=== PATIENT | female | born 1990 | race Caucasian/White ===

== ENCOUNTER 2019-08-07 07:18 | Inpatient (IN) | payer OTHER ==
[2019-08-07] VITALS (20 sets, daily range): BP systolic 106–155; BP diastolic 58–82
[~2019-08-07] VITALS: Ht 162.6 cm; Wt 81.1 kg
[2019-08-07] MEDS ORDERED: GNP28TAB2 PO (07:53)
[2019-08-07] MEDS ORDERED: PROAAER10 INH (07:55)
[2019-08-07] MEDS ORDERED: OMEG10002 PO (07:56)
[2019-08-07] MEDS ORDERED: LACTATED RINGER'S 1000 ML IV ONE (08:15)
[2019-08-07] MEDS ORDERED: miSOPROStol 50 MCG 1/2 TAB (S0191) PO ONE ×2 (08:15→22:45)
[2019-08-07] MEDS: LR 1,000 ML IV SCH (08:45)
[2019-08-07 08:55] LABS: HEMATOCRIT 37.2 % (36.0-47.0); HEMOGLOBIN 12.4 g/dl (12.0-15.5); MEAN CORPUSCULAR HEMOGLOBIN 30.3 pg (27.0-33.0); MEAN CORPUSCULAR HGB CONC 33.3 g/dl (32.0-36.5); PLATELET COUNT, AUTOMATED 203 10^3/uL (150-450); RED BLOOD COUNT 4.09 10^6/uL (4.00-5.40); WHITE BLOOD COUNT 9.4 10^3/uL (4.0-10.0)
--- NOTE | 2019-08-07 10:54 | HPE ---
DATE OF ADMISSION: 08/07/2019 29-year-old 1, para 0, LMP 10/25/2018, EDC 08/01/2019 at 40 and 4 weeks for induction of labor. Risk factor is that she has asthma. LABORATORIES: A+, HIV negative, hep negative, RPR negative, rubella immune. Varicella immune. Pap normal. Urine negative. Gonorrhea and chlamydia were negative. Urine was negative. 1-hour GTT early was 114, 28 weeks GTT was 111. GBS negative. Urine is 1020, pH 6, negative. Blood pressure 126/82, respirations 18, pulse 82 and temperature 98.6. PHYSICAL EXAMINATION: No distress. Symphysis fundus height is 40, vertex, OA, four quadrant bowel sounds are noted. Category 1 strip. Posterior, soft, 50%, 1-2 cm. The rest of the examination is unremarkable. Normocephalic, atraumatic. Neck with full range of motion. Pupils equal and reactive to light. Distal pulses symmetric. No evidence of DVT, PE or superficial phlebitis. Chest is clear bilaterally. No wheezes or rhonchi. No CVA tenderness. Abdomen is soft. As mentioned, four quadrant bowel sounds. No rashes, lesions or pruritus. No arthralgia, myalgia. No complaint joint pain. No complaint cough, wheeze, shortness of breath or dyspnea on exertion. No bruising or bleeding. Neuro complete. No urgency or frequency. No nausea, vomiting, diarrhea or constipation. No diabetic or heat or cold issues. PAST GYNECOLOGICAL HISTORY: Unremarkable. No STDs. PAST MEDICAL HISTORY: Asthma, uses an inhaler an as needed basis. PAST SURGICAL HISTORY: Unremarkable. FAMILY HISTORY: Noncontributory. SOCIAL HISTORY: She does not smoke, drink or abuse drugs. She is . There is no domestic violence. We discussed the vaginal delivery, which is delivery of the baby through the vagina with possible assistance of forceps or vacuum devices if needed for maternal or indications, forceps or vacuum device can assist with vaginal delivery when normal pushing efforts cannot achieve delivery on their own or when delivery is needed in emergency for baby's well-being. Medications that may require to induce or augment labor in order achieve vaginal delivery. Episiotomy may be required to help the baby deliver vaginally. You may also require repair of any lacerations or tears of the vagina or vulva that are caused by delivery and in some cases emergencies can arise that require emergency section and the provider will discuss the reasons and indications and used only for clinically indicated reasons. Risk of vaginal delivery is not limited to bleeding, infection, injury to the vagina, pelvic structures, injury to baby, damage to the uterus, reaction to anesthesia, uterine rupture, risk of hysterectomy for life-threatening bleeding issues. Medication used to induce or augment labor may possibly cause increased risk of infection, uterine tachysystole, uterine rupture, bleeding, heart rate abnormalities, emergency section, hemorrhage. Increased risk of perineal or vaginal lacerations of vaginal delivery. Risk of urinary bowel incontinence. Use of forceps or vacuum include scratches, hematomas of the head or intracranial bleed. The patient verbalized understanding, 40-minute discussion. All questions were answered. Safe to proceed.
--- NOTE | 2019-08-07 12:44 | IPN ---
DATE: 08/07/2019 This lady was admitted for induction of labor. She was given 50 mg of misoprostol by mouth. On reassessment 4 hours later, contractions are 4 minutes apart, moderate intensity. Cervix is changed to anterior, 1-2 cm, still thick. We anticipate with a category one strip one more oral 25 mg tablet, this should activate active labor. We will reevaluate her in 4 hours time. Safe to proceed.
[2019-08-07] MEDS ORDERED: miSOPROStol 25 MCG 1/4 TAB (S0191) PO ONE (12:45)
--- NOTE | 2019-08-07 16:39 | IPN ---
DATE: 08/07/2019 Time: 1600 hours This lady is a 1, para 0 who was admitted for induction of labor post term gestation. She had one misoprostol 50 mg by mouth (p.o.) and was doing well with contractions. Therefore we evaluated her. She was 1 to 2 cm. We let her continue on for another 3-4 hours, evaluated her, category one strip. No change in the cervix. Therefore were adding 25 mg by mouth. She is still not at the point of Estes bulb Pitocin augmentation. The patient expressed understanding of the plan of care. Safe to proceed.
--- NOTE | 2019-08-07 22:59 | IPN ---
DATE: 08/07/2019 This lady is admitted for induction of labor. She had had one misoprostol 50 mg and she had 25 mg, now she is going to have another 50 by mouth (p.o.). Contractions are intermittent. There is been basically no cervical change since admission, still posterior finger tip -3 station, inability to get a Estes bulb in basically too early for Pitocin. Our plan of care is to do one more misoprostol, hopefully to allow us to engage with a Estes bulb and a Pitocin order. Has a category one strip. She has had one elevated blood pressure at the time of the examination, was 155/72. The rest of her blood pressures throughout have been all in the normal range. The patient expressed understanding of plan of care.
[2019-08-08] VITALS (20 sets, daily range): BP systolic 94–148; BP diastolic 55–91
[2019-08-08] MEDS ORDERED: BUTORPHANOL 2 MG/ML INJ (J0595) IV ONE (00:45)
[2019-08-08] MEDS ORDERED: PROMETHAZINE INJ 25 MG/ML VIAL (J2550) IV ONE ×2 (00:45→20:45)
[2019-08-08] MEDS ORDERED: miSOPROStol 50 MCG 1/2 TAB (S0191) PO ONE (07:15)
--- NOTE | 2019-08-08 07:18 | IPN ---
DATE: 08/08/2019 This lady was admitted for induction of labor. She was at 40 and 4. She is now 40 and 5 weeks of gestation. Initially she had an unfavorable cervix, was given 15 mcg of Misoprostol, followed up by irregular contractions. She was allowed to labor on her own and the contractions petered out. She was given 25 mcg of Misoprostol, essentially just intermittent contractions. She was then evaluated again and found to have an unfavorable cervix inability to put a Estes or even start Pitocin. She was given another 50 mcg of Misoprostol. Overnight she was allowed to sleep. She was given Stadol and Phenergan and on awakening this morning again examining her cervix, it is still unstable for a Estes bulb or Misoprostol, although it has softened up considerably. We have elected to go head and have her have breakfast and then will redo the Misoprostol times one 50 mcg. At 7:01 this morning blood pressure was 148/91, respirations 18 and she was afebrile. Safe to proceed. Category 1 strip of the present time with minimal contractions.
[2019-08-08] MEDS ORDERED: OXYTOCIN DRIP 30 UNITS in IV 1 EA IV SCH (12:45)
[2019-08-08] MEDS: LR 1,000 ML IV SCH (13:12)
--- NOTE | 2019-08-08 17:28 | IPNPDOC ---
Text Note Date of Service The patient was seen on 08/08/19. NOTE Shanthi is a 29 y/o G1 at 41+0 weeks EGA admitted yesterday for late term IOL. GBS is neg. Received 4th dose oral misoprostil (50mcg) this morning at 07:30. currently on 4 mU/min pit. patient reports feeling mild contractions. vitals: normal NAD abd: gravid, soft, nt, cephalic efw: 3800 gm fht:135/mod johanne/pos accel/no decel toco: ctx q 2-5mins ce: /-3, posterior, soft a/p patient not in labor. carmen bulb placed with 80cc cervical side. continue with pit. reassess after carmen bulb comes out. Le, DO VS,Fishbone, I+O VS, Fishbone, I+O Vital Signs Date Time Temp Pulse Resp B/P (MAP) Pulse Ox O2 Delivery O2 Flow Rate FiO2 08/08/19 14:32 74 16 128/82 (97) 08/08/19 13:15 98.2 I&O- Last 24 Hours up to 6 AM 08/08/19 06:00 Intake Total 3000 ml Output Total 1400 ml Balance 1600 ml FLORESITA LOPEZ DO Aug 08, 2019 17:28
[2019-08-08] MEDS ORDERED: MORPHINE 10 MG/ML 1ML VIAL (J2270) IV ONE (20:45)
[2019-08-08] MEDS ORDERED: MORPHINE 10 MG/ML 1ML VIAL (J2270) IM ONE (20:45)
[2019-08-09] VITALS (62 sets, daily range): BP systolic 95–147; BP diastolic 52–100
[2019-08-09 11:08] LABS: HEMATOCRIT 32.1 % (36.0-47.0); HEMOGLOBIN 10.8 g/dl (12.0-15.5); MEAN CORPUSCULAR HEMOGLOBIN 30.8 pg (27.0-33.0); MEAN CORPUSCULAR HGB CONC 33.6 g/dl (32.0-36.5); MEAN CORPUSCULAR VOLUME 91.5 fl (80.0-96.0); PLATELET COUNT, AUTOMATED 146 10^3/uL (150-450); RED BLOOD COUNT 3.51 10^6/uL (4.00-5.40); WHITE BLOOD COUNT 10.1 10^3/uL (4.0-10.0)
[2019-08-09] MEDS: LR 1,000 ML IV SCH ×4 (11:20→20:55)
--- NOTE | 2019-08-09 11:29 | IPN ---
DATE: 08/09/2019 This lady is a 29-year-old, 1, who was at 40 and 4 weeks of gestation on admission for induction of labor. She has now been here 3 days and so she is 41 weeks of gestation. She has had multiple lots of Cytotec, both 50 and 25 mg. She did get some reasonable contractions, but has failed to dilate her cervix until yesterday, 08/08/2019, when a Estes bulb catheter was placed and Pitocin was started. The Estes bulb catheter fell out at 0600 hours this morning. She is having some mild cramping and irritability, which is not causing her any discomfort. She presently has a category one strip with contractions that are about 4-6 minutes apart with 40-second duration, but she is not feeling them particularly. She did have a spontaneous rupture of membranes at 0930 this morning of clear liquid. As mentioned, the Estes bulb fell out at 0600 hours. Presently, her blood pressure is 118/68, respirations are 18, pulse is 65 and she is afebrile at 98.0. She is GBS negative. On examination presently, the vertex is about -3. Cervix is soft. She is maybe 2-3 cm in the occiput posterior (OP) position, not well applied to the cervix. Pitocin is at 12 milliunits. Our plan of care as discussed with the patient is to have an epidural around noontime and increase the Pitocin to approximately 16-18 milliunits. We discussed the risks of prolonged induction which include infection, atonic uterus, hemorrhage, remote risk of hysterectomy, remote risk of blood transfusion, based on a prolonged induction protocol. The patient expressed understanding of the same. We will have the epidural in by noon, Estes catheter and reevaluate her cervix at 1300 hours, after which time, a final decision will be made. The patient and accepted the plan of care. 40-minute discussion. All questions were answered.
[2019-08-09] MEDS ORDERED: FENTANYL 2MCG/ML ROPIVACAINE 0.2% IN 0.9% NACL 100ML IVBAG As Ordered ONE ×2 (12:24→19:46)
[2019-08-09] MEDS ORDERED: LACTATED RINGER'S 1000 ML IV PRN (12:30)
[2019-08-09] MEDS ORDERED: ePHEDrine SULFATE 25 MG/5 ML(5MG/ML) SYRINGE IV PRN (12:30)
[2019-08-09] MEDS ORDERED: ONDANSETRON 4MG/2ML VIAL (J2405) IV PRN (12:30)
[2019-08-09] MEDS ORDERED: REFRIGERATOR IV KEYS XX PRN (12:30)
[2019-08-09] MEDS ORDERED: FENTANYL/ROPIVACAINE/NACL BAG 100 ML EPIDURAL SCH (12:30)
[2019-08-09] MEDS ORDERED: EPIDURAL COMMENT XX SCH (12:30)
[2019-08-09] MEDS ORDERED: NALOXONE INJ 0.4 MG/1 ML VIAL (J2310) IV PRN (12:30)
[2019-08-09] MEDS ORDERED: EPIDURAL/PCA KEYS XX PRN (12:30)
[2019-08-09] MEDS ORDERED: diphenhydrAMINE 50MG/ML VIAL (J1200) IV PRN (12:30)
--- NOTE | 2019-08-09 18:42 | IPN ---
DATE: 08/09/2019 at 1830 hours This lady was induction of labor for post dates gestation. She now has a Estes catheter in, epidural in place. Category 1 strip. She is still 5-6 cm, -3 station with some moulding and thickening of the cervix. She is on 18 milliunits of Pitocin, having contractions every 2-3 minutes, moderate intensity. Our plan of care is to recheck her in 3 hours' time. If she fails to dilate beyond 5-6 cm, discussion regarding primary section for failure to descend and failure to dilate will take place. The patient expressed understanding of plan of care. Safe to proceed.
--- NOTE | 2019-08-09 21:23 | IPN ---
DATE: 08/09/2019 This is a reassessment of a patient who is 5-6 cm. Pitocin was at 18 milliunits per minute; contractions are about 4 minutes apart. Category one strip. Presently 2 hours later she is about 8 cm but thick, not well applied and -2 station. Presently there is a tachycardia of 180 and therefore we are going to turn off the pitocin, resuscitate baby was IV fluids and since she is having considerable pain were going to redose with her with her epidural. Presently her blood pressure is 134 and 75, respirations are 16, pulse is 86 and temperature is 99.6. We repeated her lab work and her white count is 10.1, hemoglobin/hematocrit are stable, but her platelets went from 203 to 146. Our plan of management is to reassess in 1 hours' time. Failing progress we will offer section. We have a low threshold for tachycardia.
[2019-08-09] MEDS ORDERED: BICITRA 30ML SOLN UDC PO ONE (23:00)
[2019-08-09] MEDS ORDERED: ceFAZolin SOD 2 GM in IV 1 EA IV ONE (23:00)
[2019-08-09] MEDS ORDERED: LACTATED RINGER'S 1000 ML IV ONE (23:00)
[2019-08-09] MEDS ORDERED: LR 1,000 ML IV SCH (23:00)
[2019-08-09] MEDS ORDERED: ACETAMINOPHEN 650 MG SUPP PR ONE (23:00)
[2019-08-09] MEDS ORDERED: BUPIVACAINE HCL 0.25% 10ML VIAL SC ONE (23:00)
[2019-08-09] MEDS ORDERED: AZITHROMYCIN INJ 500 MG, VIAL MATE ADAPTER 1 EACH in D5W 250 ML IV ONE (23:00)
[2019-08-10] VITALS (10 sets, daily range): BP systolic 106–153; BP diastolic 67–92
[2019-08-10] MEDS ORDERED: fentaNYL 100 MCG/2 ML INJECTION (J3010) As Ordered ONE (00:42)
[2019-08-10] MEDS ORDERED: OXYTOCIN 30 UNITS IN 0.9% NaCl 500ML IV BAG (J2590) As Ordered ONE (00:42)
[2019-08-10] MEDS ORDERED: OXYTOCIN INJ 10 UNITS/ML VIAL (J2590) As Ordered ONE (00:42)
[2019-08-10] MEDS ORDERED: ONDANSETRON 4MG/2ML VIAL (J2405) As Ordered ONE (00:42)
[2019-08-10] MEDS ORDERED: MORPHINE PRES-FREE INJ 10 MG/10 ML VIAL (J2274) As Ordered ONE (00:42)
[2019-08-10] MEDS ORDERED: dexameTHASONE 4 MG/ML 1ML VIAL (J1100 PER 1MG) As Ordered ONE (00:42)
[2019-08-10] MEDS ORDERED: KETOROLAC 60 MG/2 ML VIAL (J1885) As Ordered ONE (00:42)
[2019-08-10] MEDS ORDERED: LIDOCAINE 2% W/EPIN INJ 20ML **PRES FREE As Ordered ONE (00:42)
[2019-08-10 00:53] LABS: CORD GAS ABE V -4.5; CORD GAS HCO3 V 18.8 MEQ/L; CORD GAS O2 SAT V 83.2 %; CORD GAS PCO2 V 30.6 mmHg; CORD GAS PH V 7.406 UNITS; CORD GAS SBC V 20.4 MEQ/L; CORD GAS TCO2 V 19.7 MEQ/L
[2019-08-10 00:58] LABS: CORD GAS O2 SAT A 52.4 %; CORD GAS PCO2 A 44.7 mmHg; CORD GAS PH A 7.33 UNITS; CORD GAS PO2 A 23.9 mmHg; CORD GAS SBC A 20.8 MEQ/L; CORD GAS TCO2 A 24.4 MEQ/L
[2019-08-10] MEDS ORDERED: PHENYLephrine HCL 500 MCG/5 ML (100MCG/ML) SYRINGE (J2370) As Ordered ONE (01:16)
[2019-08-10] MEDS ORDERED: DOCUSATE SODIUM 100 MG CAP PO PRN (01:30)
[2019-08-10] MEDS ORDERED: ONDANSETRON 4MG/2ML VIAL (J2405) IV PRN (01:30)
[2019-08-10] MEDS ORDERED: MOM 30ML SUSPENSION UDC PO PRN (01:30)
[2019-08-10] MEDS ORDERED: MEPERIDINE INJ 25 MG/ML VIAL (J2175) IV PRN (01:30)
[2019-08-10] MEDS ORDERED: ACETAMINOPHEN 500 MG TAB PO PRN (01:30)
[2019-08-10] MEDS ORDERED: ANUSOL HC CREAM 30GM TOP PRN (01:30)
[2019-08-10] MEDS ORDERED: PERCOCET 5MG/325MG TAB PO PRN ×3 (01:30)
[2019-08-10] MEDS ORDERED: ACETAMINOPHEN TAB 650MG DOSE (2X325MG) PO PRN (01:30)
[2019-08-10] MEDS ORDERED: METOCLOPRAMIDE INJ 10MG/2ML VIAL (J2765) IV PRN (01:30)
[2019-08-10] MEDS ORDERED: fentaNYL 100 MCG/2 ML INJECTION (J3010) IV PRN (01:30)
[2019-08-10] MEDS ORDERED: LR 1,000 ML IV SCH (01:30)
[2019-08-10] MEDS ORDERED: ALBUTEROL 90 MCG/ACT 8GM HFA INHALER INH PRN (01:45)
[2019-08-10] MEDS ORDERED: OXYTOCIN INJ 10 UNITS/ML VIAL (J2590) IV ONE (02:00)
[2019-08-10] MEDS ORDERED: MEASLES,MUMPS,RUBELLA VACCINE INJ (MMR-II) (90707) SC SCH (02:00)
[2019-08-10] MEDS ORDERED: OXYTOCIN DRIP 30 UNITS in IV 1 EA IV ONE (02:00)
[2019-08-10] MEDS ORDERED: RHOGAM 300 MCG (1500 IU) INJ (J2790) IM SCH (02:00)
[2019-08-10] MEDS: KETOROLAC 30 MG/ML VIAL (J1885) IV SCH ×3 (06:48→18:47)
--- NOTE | 2019-08-10 06:51 | RO ---
DATE OF PROCEDURE: 08/10/2019 This is a 29-year-old 1 who was admitted for induction of labor at 41 weeks of gestation. After four doses of Cytotec, one Estes bulb, Pitocin at 20 milliunits, she was in the POP position, failure to dilate, failure to descend, asynclitism. PREOPERATIVE DIAGNOSIS: Primary section. POSTOPERATIVE DIAGNOSIS: Primary section. SURGEON: Tom Howell MD [employer] AIDE: Corona Rahman MD for retraction extraction and visualization in order to complete the procedure. ANESTHESIA: Epidural plus local anesthetic for intraperitoneal procedures. ESTIMATED BLOOD LOSS: 300 mL DESCRIPTION OF PROCEDURE: After adequate time out, prepped and draped in the supine position, Estes catheter in the bladder draining clear urine, acetaminophen suppository 1300 mg per rectum, sequentials in place, a Pfannenstiel incision was made two fingerbreadths above the symphysis pubis passing through abdominal layers securing hemostasis. Opening the peritoneal cavity we noticed the lower segment was quite bulging. Bladder reflected well down anteriorly. A Mobius was placed in the abdominal cavity and a low transverse incision into the uterus, copious amounts of amniotic fluid were noted and baby was in the POP position, extracted a live female weighing 8 pounds 10 ounces, 3910 grams, scores of eight and nine at 1 and 5 minutes respectfully. Cord around the neck times one loose. Arterial pH 7.33, base excess -3.0, venous pH 7.40, base excess -4.5. The uterus was manually removed, three vessels in the cord, membranes and tissues intact. The uterus contracted well down on Pitocin. The lower segment was oversewn in the usual fashion with two layers, imbricating the second layer, and reperitonealization was performed. With instrument and pad count correct, the Mobius was removed. The abdomen was then closed with running suture for the peritoneum, same for the fascia, interrupted for subcu, Dexon to the skin, Marcaine 0.25% 10 mL, spray and Telfa. The was uterus was one below after surgery and was well contracted. The patient and baby tolerating procedure well.
[2019-08-10] MEDS: PRENATAL VITAMINS CHEWABLE TABLET PO SCH (08:39)
[2019-08-11 02:00] VITALS: BP 110/61
[2019-08-11] MEDS: IBUPROFEN 800 MG TAB PO SCH ×3 (02:24→18:46)
[2019-08-11] MEDS ORDERED: IBUPROFEN 600 MG TAB PO PRN (03:00)
[2019-08-11 06:40] LABS: HEMATOCRIT 30.3 % (36.0-47.0); HEMOGLOBIN 10.1 g/dl (12.0-15.5); MEAN CORPUSCULAR HEMOGLOBIN 30.7 pg (27.0-33.0); MEAN CORPUSCULAR HGB CONC 33.3 g/dl (32.0-36.5); MEAN CORPUSCULAR VOLUME 92.1 fl (80.0-96.0); PLATELET COUNT, AUTOMATED 156 10^3/uL (150-450); RED BLOOD COUNT 3.29 10^6/uL (4.00-5.40); WHITE BLOOD COUNT 9.8 10^3/uL (4.0-10.0)
[2019-08-11] MEDS: PRENATAL VITAMINS CHEWABLE TABLET PO SCH (08:50)
--- NOTE | 2019-08-11 09:09 | IPNPDOC ---
Progress Note Date of Service: Aug 11, 2019 Day#: 1 Progress Note POD 1 SUBJECT: Shanthi is a 29yo s/p uncomplicated PLTCS just after midnight on 08/09 for arrest of dilation after undergoing IOL for LTG, doing well /post-op day # 1. She has been ambulating without lighth eadedness/dizziness. She was not able to void yesterday, so carmen was replaced and only just removed about an hour ago. She voided a scant amount after carmen was removed, so awaiting true trial of void currently. She is tolerating regular diet without nausea/vomiting. Pain well controlled with motrin- has not yet requested percocet. Breast feeding without issue. Reports lochia is like a normal period. No f/c/CP/SOB. OBJECTIVE: VITAL SIGNS: Within normal limits, afebrile. Alert and oriented times three. Abdomen: Fundus firm at U-2. Soft, appropriately tender to palpation. Pfannensteil incision is clean/dry/intact with no erythema/induration/drainage/dehiscence. Extremities: trace pedal edema, no pain with palpation of calves Labs: pre-op H/H: 10.8/32.1 post-op H/H: 10.1/30.3 ASSESSMENT: Shanthi is a 29yo s/p uncomplicated PLTCS just after midnight on 08/09 for arrest of dilation after undergoing IOL for LTG, doing well /post-op day # 1. Vitals within normal limits, afebrile, hemodynamically stable with no evidence of infection. PLAN: 1. Routine /post-op care 2. Motrin and prn percocet for pain. 3. Encourage breast feeding and ambulation and use of IS 4. Regular diet 5. 4 hour due to void this morning 6. Anticipate discharge tomorrow if meeting all milestones Dr. Dawn Colindres MD VS, I&O, 24H, Fishbone Vital Signs/I&O Vital Signs Date Time Temp Pulse Resp B/P (MAP) Pulse Ox O2 Delivery O2 Flow Rate FiO2 08/11/19 02:00 98.8 84 18 110/61 (77) 95 Room Air I&O- Last 24 Hours up to 6 AM 08/11/19 06:00 Intake Total 2700 ml Output Total 3850 ml Balance -1150 ml Laboratory Data 24H LABS Laboratory Tests 2 08/11/19 06:24: Nucleated Red Blood Cells % (auto) 0.0 CBC/BMP Laboratory Tests 08/11/19 06:24 Dawn Colindres MD Aug 11, 2019 09:09
[2019-08-11 18:46] VITALS: BP 136/91
[2019-08-12] MEDS: IBUPROFEN 800 MG TAB PO SCH ×2 (03:00→11:16)
[2019-08-12 06:00] VITALS: BP 150/83
[2019-08-12] MEDS: PRENATAL VITAMINS CHEWABLE TABLET PO SCH (08:53)
[2019-08-12] MEDS ORDERED: PERCOCET PO (09:06)
[2019-08-12] MEDS ORDERED: IBUP80TA PO (09:06)
[2019-08-12] MEDS ORDERED: DOCU100C16 PO (09:06)
--- NOTE | 2019-08-12 09:09 | DSES ---
DATE OF ADMISSION: 08/07/2019 DATE OF DISCHARGE: This lady is a 29-year-old, 1, now para 1, was admitted induction of labor at 41 weeks. She had a primary section for persistent occiput posterior (POP), failure to dilate and failure to descend a synclitism delivered a female weighing 8 pounds 10 ounces (3910 grams) score of 8 and 9 at one and five minutes respectfully. Arterial pH 7.33, base excess -3.0. Venous pH 7.40, base excess -4.5. On her second day, we discussed phlebitis, cystitis, mastitis, endometritis and cellulitis, diet, exercise, pain management, perineal, breast and wound care. The rest the examination unremarkable. She is normocephalic, atraumatic. Neck full range of motion. Pupils equal and reactive to light. Distal pulses symmetric. No evidence of deep venous thrombosis (DVT), pulmonary embolism (PE), or superficial phlebitis. Chest is clear bilaterally bases. No wheezes or rhonchi. No costovertebral angle (CVA) tenderness. Abdomen soft. Uterus two below. Lochia is moderate. Four quadrant bowel sounds are noted. Perineum is dry. She has no rashes, lesions or pruritus. No arthralgia or myalgia. No complaint of joint pain. No complaint of cough, wheeze, shortness of breath or dyspnea on exertion. No nausea, vomiting, diarrhea or constipation. No urgency or frequency. She is passing gas, moving her bowels. Breast-feeding well. The baby is under the lights indeterminate time of discharge. Her blood pressure on discharge was 150/83. Respirations are 16, pulse 81, temperature is 99.1. Her discharge hemoglobin 10.1, hematocrit 30.3, and platelets are 156. In summary, we have a term late term gestation delivered a live female by primary section improved. 2-week incision check. 6-week check.
--- NOTE | 2019-08-12 14:52 | IPN ---
DATE OF SERVICE: 08/09/2019 TIME: 2230 hours. This lady is a 1, para 0 who was admitted at 40+ weeks of gestation for induction of labor. She had four lots of Cytotec, she had a Estes bulb, she had Pitocin up to 20 milliunits, failed to dilate beyond 8 cm with a thick rim around the 8 in the POP position, despite adequate contractions, Also, there was some episodic areas of bradycardia and her platelet count was slowly going down. after discussion with the patient and regarding the end stage, which is probably primary section, risks and benefits of section were discussed including the clinical indications, the risk of remote possibility of hemorrhage because of uterine atony, and the remote possibility of blood transfusion, remote possibility of hysterectomy for life-threatening bleeding. Also the possibility that the baby may require intensive-care unit (NICU) admission and/or at the time of section there could be lacerations, hematomas to the baby. The patient and expressed understanding of the situation and requested to push forward with section. We will notify anesthesia and neonatology. It is safe to proceed.
== END 2019-08-12 11:50 | disposition home or self-care (01) | DRG 773 ==
LOC: M LDI 07:18 → M OBS 08-10 03:06
PROVIDERS: ADMIT Obstetrics & Gynecology; ATTEND Obstetrics & Gynecology
PROC: 3E033VJ Introduction of Other Hormone into Peripheral Vein, Percutaneous Approach (ICD-10-PCS; 2019-08-07)
PROC: 3E0DXGC Introduction of Other Therapeutic Substance into Mouth and Pharynx, External Approach (ICD-10-PCS; 2019-08-07)
PROC: 10D00Z1 Extraction of Products of Conception, Low, Open Approach (ICD-10-PCS; principal; 2019-08-10 01:12)
DX: O48.0 Post-term pregnancy (principal); Z37.0 Single live birth; Z3A.40 40 weeks gestation of pregnancy; J45.909 Unspecified asthma, uncomplicated; O99.52 Diseases of the respiratory system complicating childbirth; O62.0 Primary inadequate contractions; O32.4XX0 Maternal care for high head at term, not applicable or unspecified